=== PATIENT | female | born 1995 | race Caucasian/White ===

== ENCOUNTER 2016-07-04 20:48 | Emergency (ER) | payer OTHER ==
--- NOTE | 2016-07-04 21:06 | ED CLINICAL REPORT ---
Clinical Report - Physicians/Mid Levels [facility] [address] [place] [address] 07/04/2016 20:50 Patient: DIXIE ZULETA Time Seen: 2057. Arrived- By private vehicle. Historian- patient. HISTORY OF PRESENT ILLNESS Chief Complaint: SKIN RASH and (possible allergic reaction, lip swelling). This started just prior to arrival and is now gone. It is described as itchy. It has been located on the face, right upper extremity and left upper extremity. (Patient was eating a salad earlier today, when she noted her lip swelling. Consequently to so she took Benadryl 50 mg. She reports the symptoms are now improving. She reports having hives to her wrist, also improving. No history of similar. Denies any difficulty swallowing. Denies any shortness of breath. Denies any current symptoms.). REVIEW OF SYSTEMS No fever, chills, difficulty breathing, hoarseness or diarrhea. All systems otherwise negative, except as recorded above. SOCIAL HISTORY Never smoker. No alcohol use or drug use. ADDITIONAL NOTES The nursing notes have been reviewed. PHYSICAL EXAM Vital Signs: 07/04/2016 20:56 BP: 130/80. HR: 72. RR: 18. O2 saturation: 100%. Temp: 98.2 F. Pain level now: 0/10. Appearance: Alert. No acute distress. ENT: Ears normal. Nose normal. CVS: Normal heart rate and rhythm. Heart sounds normal. Normal rhythm. Respiratory: No respiratory distress. Breath sounds normal. Skin: Skin warm. Skin not cool on palpation. No rash. No erythema. No tender indurated area. No cellulitis. No skin rash. Neuro: Oriented X 3. PROGRESS AND PROCEDURES Course of Care: Patient had an area is very stable. No distress. Patient of all palpation. No signs of hives. No signs of angioedema. Lungs clear. No otherwise signs of systemic disease process. Patient is stable. Symptoms better. Patient/family counseled. Disposition: Discharged. CLINICAL IMPRESSION Allergic reaction. INSTRUCTIONS ([facility]: Address: [address] [place] [address] as needed). (Electronically signed by Elaina Pascual P.A.-C 07/04/2016 22:02)
--- NOTE | 2016-07-04 21:06 | ED NURSING NOTES ---
Clinical Report - Nurses [facility] [address] [place] [address] 07/04/2016 20:50 Patient: DIXIE ZULETA TRIAGE Triage time 20:57. Chief Complaint: ALLERGIC REACTION and HIVES and SWELLING --21: Delia Plunkett R.N. 20:56 07/04/16. BP: 130/80. HR: 72. RR: 18. O2 saturation: 100%. Temp: 98.2 F. Pain level now: 0/10. --21: Delia Plunkett R.N. Acuity: LEVEL 3. --21: Delia Plunkett R.N. Weight: 63.5 kg stated. Height/Length: 66 inches Per Patient. BMI: 22.6. --21:00 Delia Plunkett R.N. Medications Keflex Oral. --20:58 Delia Plunkett R.N. Keflex Oral (Capsule 250 mg) 1 capsule, 2x a day, acne, started 4 years ago. --20:59 Delia Plunkett R.N. Allergies No Known Drug Allergy. --20:59 Delia Plunkett R.N. History Arrived by private vehicle, and accompanied by friend. This started today. Started while eating. Symptoms gone now (at about 1830). 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 Symptoms improved after treatment. PAST MEDICAL HX: Negative. SOCIAL HX: Never smoker. No alcohol use or drug use. --21: Delia Plunkett R.N. PROBLEMS: no known problems. ADDITIONAL SURGERIES: no known surgeries. Interventions ID band on patient. --21:01 Delia Plunkett R.N. PHYSICAL ASSESSMENT Ambulatory to room. GENERAL / NEURO / PSYCH: Alert. The patient does not appear to be in acute distress. Oriented X 4. HEENT: Pupils equal, round and reactive to light. RESPIRATORY: Respirations not labored. CVS: Normal sinus rhythm noted. SKIN: Skin is warm. No skin rash. --21:02 Delia Plunkett R.N. NURSING PROGRESS NOTES Two patient identifiers checked. Call light placed in reach. Side rails up x 1. Patient ready for evaluation- chart flagged. --21:02 Delia Plunkett R.N. DISPOSITION / DISCHARGE Departure time: 21:09. Condition at departure: improved. ( Pt ambulated out of the er with no assistance. Pt was not sob or having any pain.). No learning barriers present. Discharge instructions provided and reviewed with the patient. Patient verbalized understanding. Written instructions provided in Senegalese. The patient was discharged by the physician mental health assistant. She was discharged home and accompanied by wind tunnel mechanic. She left the Emergency Department ambulatory and via private vehicle. Choir Teacher driving. RAFFAELE COMA SCORE: Raffaele Coma Scale: 15- eyes open spontaneously (4); best verbal response- oriented x 4 (5); best motor response- obeys commands (6). --21:10 César Lozada R.N. 21:08 07/04/16. BP: 118/67. HR: 69. RR: 15. O2 saturation: 100%. Pain level now 0/10. --21:10 César Lozada R.N. Locked/Released at 07/04/2016 21:10 by César Lozada R.N.
--- NOTE | 2016-07-04 21:06 | ED CLINICAL REPORT ---
Clinical Report - Physicians/Mid Levels [facility] [address] [address] 07/04/2016 20:50 Patient: DIXIE ZULETA Time Seen: 2057. Arrived- By private vehicle. Historian- patient. HISTORY OF PRESENT ILLNESS Chief Complaint: SKIN RASH and (possible allergic reaction, lip swelling). This started just prior to arrival and is now gone. It is described as itchy. It has been located on the face, right upper extremity and left upper extremity. (Patient was eating a salad earlier today, when she noted her lip swelling. Consequently to so she took Benadryl 50 mg. She reports the symptoms are now improving. She reports having hives to her wrist, also improving. No history of similar. Denies any difficulty swallowing. Denies any shortness of breath. Denies any current symptoms.). REVIEW OF SYSTEMS No fever, chills, difficulty breathing, hoarseness or diarrhea. All systems otherwise negative, except as recorded above. SOCIAL HISTORY Never smoker. No alcohol use or drug use. ADDITIONAL NOTES The nursing notes have been reviewed. PHYSICAL EXAM Vital Signs: 07/04/2016 20:56 BP: 130/80. HR: 72. RR: 18. O2 saturation: 100%. Temp: 98.2 F. Pain level now: 0/10. Appearance: Alert. No acute distress. ENT: Ears normal. Nose normal. CVS: Normal heart rate and rhythm. Heart sounds normal. Normal rhythm. Respiratory: No respiratory distress. Breath sounds normal. Skin: Skin warm. Skin not cool on palpation. No rash. No erythema. No tender indurated area. No cellulitis. No skin rash. Neuro: Oriented X 3. PROGRESS AND PROCEDURES Course of Care: Patient had an area is very stable. No distress. Patient of all palpation. No signs of hives. No signs of angioedema. Lungs clear. No otherwise signs of systemic disease process. Patient is stable. Symptoms better. Patient/family counseled. Disposition: Discharged. CLINICAL IMPRESSION Allergic reaction. INSTRUCTIONS ([facility]: Address: [address] [address] as needed). (Electronically signed by Elaina Pascual P.A.-C 07/04/2016 22:02)
--- NOTE | 2016-07-04 21:06 | ED NURSING NOTES ---
Clinical Report - Nurses [facility] [address] [place] [address] 07/04/2016 20:50 Patient: DIXIE ZULETA TRIAGE Triage time 20:57. Chief Complaint: ALLERGIC REACTION and HIVES and SWELLING --21: Delia Plunkett R.N. 20:56 07/04/16. BP: 130/80. HR: 72. RR: 18. O2 saturation: 100%. Temp: 98.2 F. Pain level now: 0/10. --21: Delia Plunkett R.N. Acuity: LEVEL 3. --21: Delia Plunkett R.N. Weight: 63.5 kg stated. Height/Length: 66 inches Per Patient. BMI: 22.6. --21:00 Delia Plunkett R.N. Medications Keflex Oral. --20:58 Delia Plunkett R.N. Keflex Oral (Capsule 250 mg) 1 capsule, 2x a day, acne, started 4 years ago. --20:59 Delia Plunkett R.N. Allergies No Known Drug Allergy. --20:59 Delia Plunkett R.N. History Arrived by private vehicle, and accompanied by friend. This started today. Started while eating. Symptoms gone now (at about 1830). 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 Symptoms improved after treatment. PAST MEDICAL HX: Negative. SOCIAL HX: Never smoker. No alcohol use or drug use. --21: Delia Plunkett R.N. PROBLEMS: no known problems. ADDITIONAL SURGERIES: no known surgeries. Interventions ID band on patient. --21:01 Delia Plunkett R.N. PHYSICAL ASSESSMENT Ambulatory to room. GENERAL / NEURO / PSYCH: Alert. The patient does not appear to be in acute distress. Oriented X 4. HEENT: Pupils equal, round and reactive to light. RESPIRATORY: Respirations not labored. CVS: Normal sinus rhythm noted. SKIN: Skin is warm. No skin rash. --21:02 Delia Plunkett R.N. NURSING PROGRESS NOTES Two patient identifiers checked. Call light placed in reach. Side rails up x 1. Patient ready for evaluation- chart flagged. --21:02 Delia Plunkett R.N. DISPOSITION / DISCHARGE Departure time: 21:09. Condition at departure: improved. ( Pt ambulated out of the er with no assistance. Pt was not sob or having any pain.). No learning barriers present. Discharge instructions provided and reviewed with the patient. Patient verbalized understanding. Written instructions provided in Nicaraguan. The patient was discharged by the physician office manager executive assistant. She was discharged home and accompanied by gamb cutter. She left the Emergency Department ambulatory and via private vehicle. Universal Grinder Tool driving. RAFFAELE COMA SCORE: Raffaele Coma Scale: 15- eyes open spontaneously (4); best verbal response- oriented x 4 (5); best motor response- obeys commands (6). --21:10 César Lozada R.N. 21:08 07/04/16. BP: 118/67. HR: 69. RR: 15. O2 saturation: 100%. Pain level now 0/10. --21:10 César Lozada R.N. Locked/Released at 07/04/2016 21:10 by César Lozada R.N.
--- NOTE | 2016-07-04 22:02 | ED MED RECONCILIATION SUMMARY ---
Patient: DIXIE ZULETA Medication Reconciliation Report [facility] VisitID: [id number] [address] [place] [address] 21y, F Registration Date/Time: 07/04/2016 Weight: 63.5 kg Height/Length: 66 in. BMI: 22.6 ALLERGIES: No Known Drug Allergy The patient's Home Medications are listed below: THE FOLLOWING MEDICATIONS NEED TO BE RECONCILED: Keflex Oral (250 mg) 1 capsule, 2x a day, acne Keflex Oral The source(s) of the original Home Medication information: Not obtained. The following Medications were given to the patient in the Emergency Department: None. The following Medications were prescribed to the patient: None.
--- NOTE | 2016-07-04 22:02 | ED MAR SUMMARY ---
..... Medication Administration Record [facility] [address] [place], [place] [id number] Patient: DIXIE ZULETA Visit ID: [id number] 21y, F Weight: 63.5 kg Height/Length: 66 in BMI: 22.6 ALLERGIES: No Known Drug Allergy
--- NOTE | 2016-07-04 22:02 | ED MAR SUMMARY ---
..... Medication Administration Record [facility] [address] [place], [place] [id number] Patient: DIXIE ZULETA Visit ID: [id number] 21y, F Weight: 63.5 kg Height/Length: 66 in BMI: 22.6 ALLERGIES: No Known Drug Allergy
--- NOTE | 2016-07-04 22:02 | ED DISCHARGE INSTRUCTIONS ---
Patient: DIXIE ZULETA General Instructions [facility] VisitID: [id number] [address] [place] [address] 21y, F Registration Date/Time: 07/04/2016 Allergic reaction. INSTRUCTIONS ([facility]: Address: [address] [place] [place] [address] as needed). ADDITIONAL INFORMATION Allergic Reaction,Generalized [Other] You are having an allergic reaction. This may cause an itchy rash, dizziness, fainting, trouble breathing or swallowing, and swelling of the face or other parts of the body. This can be caused by exposure to something in your surroundings that you have become sensitive to. This could be due to medicine or food. This could also be due to something you put on your skin or in your hair or something in the air. Often it is not possible to find out exactly what has caused your reaction. The goal of today's treatment is to relieve symptoms. The rash will usually fade over several days, but can sometimes last up to two weeks. Home Care: 1) If you know what you are allergic to, avoid it because future reactions could be worse than this one. 2) Avoid tight clothing and anything that heats up your skin (hot showers/baths, direct sunlight) since heat will make itching worse. 3) An ice pack will relieve local areas of intense itching and redness. Lanacaine cream or Solarcaine spray (or other product containing "benzocaine", available without a prescription) will reduce the itching. 4) Oral Benadryl (diphenhydramine) is an antihistamine available at drug and grocery stores. Unless a prescription antihistamine was given, Benadryl may be used to reduce itching if large areas of the skin are involved. Use lower doses during the daytime and higher doses at bedtime since the drug may make you sleepy. [NOTE: Do not use Benadryl if you have glaucoma or if you are a man with trouble urinating due to an enlarged prostate.] Claritin (loratidine) is an antihistamine that causes less drowsiness and is a good alternative for daytime use. Follow Up Follow Up with your doctor or this facility in two days if your symptoms do not continue to improve. If you had a severe reaction today, or if you have had several mild-moderate allergic reactions in the past, ask your doctor about allergy testing to find out what you are allergic to. If your reaction included dizziness, fainting or trouble breathing or swallowing, ask your doctor about carrying an Allergy Kit (injectable epinephrine) for home use. Get Prompt Medical Attention if any of the following occur: -- Trouble breathing or swallowing -- New or worse swelling in the face, eyelids, lips, mouth, tongue or throat -- Dizziness, weakness or fainting Allergic Reaction, Other [Local] You are having an allergic reaction. This is due to exposure to something you have become sensitive to. This may be a household product, medicine, chemical, soap, cream, cosmetics or jewelry. A sting from an insect (that you were not aware of) can also cause this reaction. Sometimes it is difficult to know exactly what caused this reaction. There may be redness, itching, and swelling. The rash will fade over the next few days. Home Care: If itching is a problem, avoid anything that heats up your skin (hot showers/baths, direct sunlight) since heat will make itching worse. An ice pack (ice cubes in a plastic bag, wrapped in a towel) will reduce local areas of redness and itching. Lanacaine cream or Solarcaine spray (or other product containing "benzocaine") will reduce the itching. Oral Benadryl (diphenhydramine) is an antihistamine available at drug and grocery stores. Unless a prescription antihistamine was given, Benadryl may be used to reduce itching if large areas of the skin are involved. Use lower doses during the daytime and higher doses at bedtime since the drug may make you sleepy. [NOTE: Do not use Benadryl if you have glaucoma or if you are a man with trouble urinating due to an enlarged prostate.] Claritin (loratadine) is an antihistamine that causes less drowsiness and is a good alternative for daytime use. Follow Up with your doctor or this facility in the next two days if your symptoms do not continue to improve. Get Prompt Medical Attention if any of the following occur: Spreading areas of itching, redness or swelling New or worse swelling in the face, eyelids, lips, mouth, throat or tongue Trouble swallowing or breathing Dizziness, weakness or fainting Signs of infection: Spreading redness Increased pain or swelling Fever of 100.4F (38C) or higher, or as directed by your healthcare provider Colored fluid draining from the wound You have been given the following additional information: Allergic Reaction, Other (General) Allergic Reaction, Other (Local) (Electronically signed by Elaina Pascual P.A.-C 07/04/2016 22:02)
--- NOTE | 2016-07-04 22:02 | ED MED RECONCILIATION SUMMARY ---
Patient: DIXIE ZULETA Medication Reconciliation Report [facility] VisitID: [id number] [address] [place] [address] 21y, F Registration Date/Time: 07/04/2016 Weight: 63.5 kg Height/Length: 66 in. BMI: 22.6 ALLERGIES: No Known Drug Allergy The patient's Home Medications are listed below: THE FOLLOWING MEDICATIONS NEED TO BE RECONCILED: Keflex Oral (250 mg) 1 capsule, 2x a day, acne Keflex Oral The source(s) of the original Home Medication information: Not obtained. The following Medications were given to the patient in the Emergency Department: None. The following Medications were prescribed to the patient: None.
--- NOTE | 2016-07-04 22:02 | ED DISCHARGE INSTRUCTIONS ---
Patient: DIXIE ZULETA General Instructions [facility] VisitID: [id number] [address] [place] [address] 21y, F Registration Date/Time: 07/04/2016 Allergic reaction. INSTRUCTIONS ([facility]: Address: [address] [place] [address] as needed). ADDITIONAL INFORMATION Allergic Reaction,Generalized [Other] You are having an allergic reaction. This may cause an itchy rash, dizziness, fainting, trouble breathing or swallowing, and swelling of the face or other parts of the body. This can be caused by exposure to something in your surroundings that you have become sensitive to. This could be due to medicine or food. This could also be due to something you put on your skin or in your hair or something in the air. Often it is not possible to find out exactly what has caused your reaction. The goal of today's treatment is to relieve symptoms. The rash will usually fade over several days, but can sometimes last up to two weeks. Home Care: 1) If you know what you are allergic to, avoid it because future reactions could be worse than this one. 2) Avoid tight clothing and anything that heats up your skin (hot showers/baths, direct sunlight) since heat will make itching worse. 3) An ice pack will relieve local areas of intense itching and redness. Lanacaine cream or Solarcaine spray (or other product containing "benzocaine", available without a prescription) will reduce the itching. 4) Oral Benadryl (diphenhydramine) is an antihistamine available at drug and grocery stores. Unless a prescription antihistamine was given, Benadryl may be used to reduce itching if large areas of the skin are involved. Use lower doses during the daytime and higher doses at bedtime since the drug may make you sleepy. [NOTE: Do not use Benadryl if you have glaucoma or if you are a man with trouble urinating due to an enlarged prostate.] Claritin (loratidine) is an antihistamine that causes less drowsiness and is a good alternative for daytime use. Follow Up Follow Up with your doctor or this facility in two days if your symptoms do not continue to improve. If you had a severe reaction today, or if you have had several mild-moderate allergic reactions in the past, ask your doctor about allergy testing to find out what you are allergic to. If your reaction included dizziness, fainting or trouble breathing or swallowing, ask your doctor about carrying an Allergy Kit (injectable epinephrine) for home use. Get Prompt Medical Attention if any of the following occur: -- Trouble breathing or swallowing -- New or worse swelling in the face, eyelids, lips, mouth, tongue or throat -- Dizziness, weakness or fainting Allergic Reaction, Other [Local] You are having an allergic reaction. This is due to exposure to something you have become sensitive to. This may be a household product, medicine, chemical, soap, cream, cosmetics or jewelry. A sting from an insect (that you were not aware of) can also cause this reaction. Sometimes it is difficult to know exactly what caused this reaction. There may be redness, itching, and swelling. The rash will fade over the next few days. Home Care: If itching is a problem, avoid anything that heats up your skin (hot showers/baths, direct sunlight) since heat will make itching worse. An ice pack (ice cubes in a plastic bag, wrapped in a towel) will reduce local areas of redness and itching. Lanacaine cream or Solarcaine spray (or other product containing "benzocaine") will reduce the itching. Oral Benadryl (diphenhydramine) is an antihistamine available at drug and grocery stores. Unless a prescription antihistamine was given, Benadryl may be used to reduce itching if large areas of the skin are involved. Use lower doses during the daytime and higher doses at bedtime since the drug may make you sleepy. [NOTE: Do not use Benadryl if you have glaucoma or if you are a man with trouble urinating due to an enlarged prostate.] Claritin (loratadine) is an antihistamine that causes less drowsiness and is a good alternative for daytime use. Follow Up with your doctor or this facility in the next two days if your symptoms do not continue to improve. Get Prompt Medical Attention if any of the following occur: Spreading areas of itching, redness or swelling New or worse swelling in the face, eyelids, lips, mouth, throat or tongue Trouble swallowing or breathing Dizziness, weakness or fainting Signs of infection: Spreading redness Increased pain or swelling Fever of 100.4F (38C) or higher, or as directed by your healthcare provider Colored fluid draining from the wound You have been given the following additional information: Allergic Reaction, Other (General) Allergic Reaction, Other (Local) (Electronically signed by lEaina Pascual P.A.-C 07/04/2016 22:02)
== END 2016-07-04 21:09 | disposition home or self-care (01) ==
LOC: ED SRH 20:48
DX: T78.40XA Allergy, unspecified, initial encounter (principal); X58.XXXA Exposure to other specified factors, initial encounter